=== PATIENT | female | born 1975 | race African-American/Black ===

== ENCOUNTER 2018-01-15 05:00 | Emergency (ER) | payer OTHER ==
[~2018-01-15] VITALS: Ht 170.2 cm; Wt 67.1 kg
[2018-01-15 05:04] VITALS: Ht 170.2 cm; Wt 67.1 kg
[2018-01-15 06:54] LABS: microscopic required? NO
[2018-01-15 07:05] LABS: UA SPECIFIC GRAVITY 1.015 (1.005-1.035); urine erythrocyte NEGATIVE (NEGATIVE)
[2018-01-15 07:40] LABS: BASOPHIL % 0.2 % (0-2); PLATELET COUNT 218 x10^3mcL (130-400)
[2018-01-15 07:41] LABS: RED CELL DISTRIBUTION WIDTH 17.2 % (11.5-14.5)
[2018-01-15 07:55] VITALS: BP 157/99
[2018-01-15 07:56] LABS: AMPHETAMINE QUAL UR POSITIVE (NEG <=1000)
[2018-01-15 07:58] LABS: CHLORIDE SERUM 110 mmol/L (98-107); POTASSIUM SERUM 4.1 mmol/L (3.5-5.1); SODIUM SERUM 140 mmol/L (136-145)
[2018-01-15 07:59] LABS: CARBON DIOXIDE 22.4 mmol/L (21-32); CHOLESTEROL 211 mg/dL (<200); CREATININE SERUM 0.9 mg/dL (0.6-1.0); GFR1 > 60 mL/min; GLUCOSE SERUM 123 mg/dL (74-106)
[2018-01-15 08:01] LABS: AMYLASE 60 U/L (25-115); CALCIUM 8.4 mg/dL (8.5-10.1); LIPASE 106 IU/L (73-393)
[2018-01-15 08:02] LABS: HDL CHOLESTEROL 63 mg/dL (40-60); T4(THYROXINE) 5.7 ug/dL (4.7-13.3)
[2018-01-15 08:32] LABS: ALBUMIN 3.7 g/dL (3.4-5.0); ALT/SGPT 12 U/L (14-59); AST/SGOT 11 U/L (15-37); BILIRUBIN TOTAL 0.2 mg/dL (0.20-1.00)
[2018-01-15 08:33] LABS: ALKALINE PHOSPHATASE 59 U/L (46-116)
== END 2018-01-15 07:55 | disposition left against medical advice (07) ==
LOC: ED 05:00
PROVIDERS: Emergency Medicine
DX: G43.809 Other migraine, not intractable, without status migrainosus (principal); F15.10 Other stimulant abuse, uncomplicated; R00.0 Tachycardia, unspecified; D50.9 Iron deficiency anemia, unspecified; J45.909 Unspecified asthma, uncomplicated; M06.9 Rheumatoid arthritis, unspecified; F17.200 Nicotine dependence, unspecified, uncomplicated; Z88.8 Allergy status to other drugs, medicaments and biological substances; Z88.5 Allergy status to narcotic agent; I10 Essential (primary) hypertension; Z90.710 Acquired absence of both cervix and uterus
CPT/HCPCS: 83880; 99406; J1200; J1885; J7030